=== PATIENT | male | born 1935 | race Caucasian/White ===

== ENCOUNTER → 2016-12-15 | Outpatient (CLI) | payer OTHER ==
[2015-06-22 11:10] VITALS: BP 151/76
[2016-12-15 09:09] LABS: BILIRUBIN,URINE NEGATIVE (NEGATIVE); BLOOD/HEMOGLOBIN,URINE NEGATIVE (NEGATIVE); GLUCOSE, URINE NEGATIVE (NEGATIVE); KETONES,URINE NEGATIVE (NEGATIVE); LEUKOCYTE ESTERASE ,URINE 1+ (NEGATIVE); NITRITES,URINE NEGATIVE (NEGATIVE); PROTEIN,URINE 2+ (NEGATIVE); UROBILINOGEN,URINE NORMAL (NORMAL)
--- NOTE | 2016-12-15 09:12 | RAD ---
HISTORY: Acute bronchitis Study: Chest two-view Comparison: July 07, 2015 Findings: The patient is status post median sternotomy and CABG. The heart is within normal limits in size. Th e lillian are normal. The aorta is calcified and ectatic. The lungs are well inflated and free of acute infiltrates. No pleural effusions are identified. The bony thorax is unremarkable. IMPRESSION: Lungs clear Reported By:
[2016-12-15 09:22] LABS: APPEARANCE,URINE CLEAR (CLEAR); COLOR,URINE YELLOW (YELLOW)
[2016-12-15 09:23] LABS: BACTERIA,URINE NEGATIVE /HPF (NEGATIVE); RBC,URINE 0 /HPF (NEGATIVE); SQUAMOUS EPITHELIAL CELL,UR NEGATIVE /HPF (NEGATIVE)
[2016-12-15 09:26] LABS: BASOPHILS # (AUTO) 0.1 X10^3/uL (0.0-0.1); EOSINOPHILS # (AUTO) 0.8 x10^3/uL (0.0-0.2); EOSINOPHILS % (AUTO) 8.7 % (0.9-2.9); HEMATOCRIT 36.2 % (42.0-54.0); HEMOGLOBIN 12.5 g/dL (13.5-18.0); LYMPHOCYTES # (AUTO) 1.2 X10^3/uL (1.3-2.9); MEAN CORPUSCULAR HEMOGLOBIN 29.2 pg (27.0-34.0); MEAN CORPUSCULAR HGB CONC 34.5 g/dL (33.0-35.0); MEAN CORPUSCULAR VOLUME 84.7 fL (80.0-100.0); MEAN PLATELET VOLUME 8.9 fL (7.4-11.0); MONOCYTES # (AUTO) 0.4 x10^3/uL (0.3-0.8); MONOCYTES % (AUTO) 4.6 % (0.0-13.0); NEUTROPHILS # (AUTO) 6.2 x10^3/uL (2.2-4.8); NEUTROPHILS % (AUTO) 71.7 % (42.0-75.0); PLATELET COUNT 236 X10^3/uL (150.0-450.0); RED BLOOD COUNT 4.28 X10^6/uL (4.7-6.0); WHITE BLOOD COUNT 8.7 X10^3/uL (3.6-10.0)
[2016-12-15 09:30] LABS: ALBUMIN 3.3 g/dL (3.4-5.0); CARBON DIOXIDE 28.8 mmol/L (21-32); CHOL/HDL RATIO 3.7 (0.0-5.0); COR CA(FOR HYPOALB) 9.6 mg/dL (8.5-10.1); CREATININE 1.52 mg/dL (0.70-1.30); FREE T4 (FREE THYROXINE) 0.98 ng/dL (0.76-1.46); MAGNESIUM 1.9 mg/dL (1.7-2.9); TOTAL PROTEIN 7.5 g/dL (6.4-8.2); TSH (3RD GENERATION) 4.961 uIU/mL (0.358-3.74); URIC ACID 6.4 mg/dL (3.5-7.2)
[2016-12-15 09:57] LABS: TOTAL PSA 0.74 ng/mL (0.13-4.0)
[2016-12-15 10:17] LABS: ERYTHROCYTE SEDIMENTATION RATE 26 MM/HOUR (0-15)
== END ==
LOC: LAB 08:19
PROVIDERS: ATTEND Internal Medicine Pulmonary Disease
DX: J20.8 Acute bronchitis due to other specified organisms (principal); J44.1 Chronic obstructive pulmonary disease with (acute) exacerbation; J41.1 Mucopurulent chronic bronchitis; N40.1 Benign prostatic hyperplasia with lower urinary tract symptoms; Z79.899 Other long term (current) drug therapy; Z12.5 Encounter for screening for malignant neoplasm of prostate
CPT/HCPCS: 36415; 71020; 80053; 80061; 81001; 82615; 83735; 84153; 84439; 84443; 84550; 85025; 85652; 87070; 87205

== ENCOUNTER 2016-12-22 11:16 | Emergency (ER) | payer OTHER ==
[2016-12-22 11:26] VITALS: BP 123/60; BMI 23.7
[2016-12-22 11:49] LABS: BASOPHILS # (AUTO) 0.1 X10^3/uL (0.0-0.1); BASOPHILS % (AUTO) 1.2 % (0.2-1.0); EOSINOPHILS # (AUTO) 0.5 x10^3/uL (0.0-0.2); EOSINOPHILS % (AUTO) 6.3 % (0.9-2.9); HEMATOCRIT 37.3 % (42.0-54.0); HEMOGLOBIN 12.6 g/dL (13.5-18.0); LYMPHOCYTES % (AUTO) 11.6 % (21.0-51.0); MEAN CORPUSCULAR HEMOGLOBIN 29.1 pg (27.0-34.0); MEAN CORPUSCULAR HGB CONC 33.9 g/dL (33.0-35.0); MEAN CORPUSCULAR VOLUME 85.8 fL (80.0-100.0); MEAN PLATELET VOLUME 9.5 fL (7.4-11.0); MONOCYTES # (AUTO) 0.5 x10^3/uL (0.3-0.8); MONOCYTES % (AUTO) 6.3 % (0.0-13.0); NEUTROPHILS # (AUTO) 6.3 x10^3/uL (2.2-4.8); NEUTROPHILS % (AUTO) 74.6 % (42.0-75.0); PLATELET COUNT 173 X10^3/uL (150.0-450.0); RED BLOOD COUNT 4.34 X10^6/uL (4.7-6.0); WHITE BLOOD COUNT 8.5 X10^3/uL (3.6-10.0)
[2016-12-22 11:56] LABS: BILIRUBIN,URINE NEGATIVE (NEGATIVE); BLOOD/HEMOGLOBIN,URINE NEGATIVE (NEGATIVE); GLUCOSE, URINE NEGATIVE (NEGATIVE); KETONES,URINE NEGATIVE (NEGATIVE); LEUKOCYTE ESTERASE ,URINE NEGATIVE (NEGATIVE); NITRITES,URINE NEGATIVE (NEGATIVE); PROTEIN,URINE 2+ (NEGATIVE); UROBILINOGEN,URINE NORMAL (NORMAL)
--- NOTE | 2016-12-22 11:58 | DR.DIZZY ---
HPI - Time seen Time seen: 11:45 - PCP Primary Care Physician: THU COOLEY - Complaint Chief Complaint Doctor Comments: Dizziness after taking cough syrup with codeine this morning. Chief Complaint:: PT. WAS AT THE [facility] IN [place] AND EMS WAS CALLED TO A LOW BLOOD PRESSURE OF 80/50. PT. C/O DIZZINESS PRIOR TO ARRIVAL AND ALSO C/O PAIN WHEN COUGHING AND RIGHT HIP PAIN. PT. STATES HE HAS BEEN ON ANTIBIOTICS FOR BRONCHITIS. - Nurses Notes Reviewed Nurses Notes Review: Yes - Source History Provided: Patient, EMS - Mode of Arrival Mode of Arrival: EMS - Timing Onset of Chief Complaint: 12/22/16 Came on: Suddenly - Modifying factors Worsens: Nothing - Associated signs and symptoms Associated Signs and Symptoms: Faintness PMH - PMH Past Medical History: Yes Past Medical History: Arthritis, Coronary Artery Disease, Depression, Diabetes, Dyslipidemia, Hypertension Past Surgical History: Yes Surgical History: CABG/Valve Surgery, Other - Family History History of Family Medical Conditions: Yes Family Medical History: [place], Hypertension - Social History Does patient currently use any type of tobacco product: No Have you used tobacco products in the last 12 months: No Type of Tobacco Use: None Does any household member use tobacco: No Alcohol Use: None Do you use any recreational Drugs:: No Lives With: Alone Lives Where: Home - infectious screening In the last 2 months have you had wt loss of >10#?: NO Have you had fever, night sweats or hemotysis?: No Have you traveled outside the country in the last 6 months?: No Isolation: Standard ROS - Review of Systems Constitutional: No Symptoms Reported Respiratoy: No Symptoms Reported Cardiovascular: No Symptoms Reported Gastrointestinal/Abdominal: No Symptoms Reported Genitourinary: No Symptoms Reported Neurological: Dizziness Musculoskeletal: No Symptoms Reported Integumentary: No Symptoms Reported All Other Systems: Reviewed and Negative PE - Vital Signs Vitals: Temperature 97.9 F Pulse Rate 90 Respiratory Rate 17 Blood Pressure [Right Arm] 151/76 Blood Pressure [Left Arm] 131/63 Blood Pressure 123/60 O2 Sat by Pulse Oximetry 95 - General Limitations: No Limitations General Appearance: Alert, In No Apparent Distress - Head Head Exam: Normal Inspection - Eyes Eye exam: Normal Appearance - ENT ENT Exam: Normal Exam - Neck Neck Exam: Normal Inspection, Full ROM, Trachea Midline - Chest Chest Inspection: Normal Inspection - Respiratory Respiratory Exam: Normal Lung Sounds Bilat Respiratory Exam: Bilateral Clear to Auscultation - Cardiovascular Cardiovascular Exam: Regular Rate, Normal Rhythm, Normal Heart Sounds - Abdominal Exam Abdominal Exam: Normal Inspection, Normal Bowel Sounds, Soft - Extremeties Extremities Exam: Normal Inspection - Neurologic Neurological Exam: Alert, Oriented X3, CN II-XII Intact Patient Oriented To: Person, Place, Time - Psychiatric Psychiatric Exam: Normal Affect, Normal Mood - Skin Skin Exam: Warm, Dry, Intact ROR - Labs Reviewed Result Diagrams: 12/22/16 11:38 12/22/16 11:38 Laboratory: WBC 8.5 X10^3/uL (3.6-10.0) 12/22/16 11:38 RBC 4.34 X10^6/uL (4.7-6.0) L 12/22/16 11:38 Hgb 12.6 g/dL (13.5-18.0) L 12/22/16 11:38 Hct 37.3 % (42.0-54.0) L 12/22/16 11:38 MCV 85.8 fL (80.0-100.0) 12/22/16 11:38 MCH 29.1 pg (27.0-34.0) 12/22/16 11:38 MCHC 33.9 g/dL (33.0-35.0) 12/22/16 11:38 RDW 14.0 % (11.6-16.5) 12/22/16 11:38 Plt Count 173 X10^3/uL (150.0-450.0) 12/22/16 11:38 MPV 9.5 fL (7.4-11.0) 12/22/16 11:38 Neut % 74.6 % (42.0-75.0) 12/22/16 11:38 Lymph % 11.6 % (21.0-51.0) L 12/22/16 11:38 Scurry % 6.3 % (0.0-13.0) 12/22/16 11:38 Eos % 6.3 % (0.9-2.9) H 12/22/16 11:38 Baso % 1.2 % (0.2-1.0) H 12/22/16 11:38 Neut # 6.3 x10^3/uL (2.2-4.8) H 12/22/16 11:38 Lymph # 1.0 X10^3/uL (1.3-2.9) L 12/22/16 11:38 Scurry # 0.5 x10^3/uL (0.3-0.8) 12/22/16 11:38 Eos # 0.5 x10^3/uL (0.0-0.2) H 12/22/16 11:38 Baso # 0.1 X10^3/uL (0.0-0.1) 12/22/16 11:38 Absolute Nucleated RBC 0.0 /100WBC 12/22/16 11:38 - Diagnosis Discharge Problem: Medication side effects present, Dizziness - Discharge Plan Disposition: HOME, SELF-CARE Condition: Stable - Follow ups/Referrals Follow ups/Referrals: Susana Vail [Primary Care Provider] - 3 days - Instructions Instructions: Polypharmacy Problems, [id number], Hypotension, [id number]
--- NOTE | 2016-12-22 12:02 | RAD ---
HISTORY: COUGH. Study: PORTABLE CHEST. Comparison: CHEST X-RAY DATED DECEMBER 15, 2016. Findings: The trachea is midline. Postsurgical changes status post CABG. The cardiac silhouette is unchanged. The lungs are clear without focal infiltrate or effusion. The bony thorax unchanged. IMPRESSION: 1. No acute cardiopulmonary disease. Reported By:
[2016-12-22 12:09] LABS: ALBUMIN 3.1 g/dL (3.4-5.0); CALCIUM 8.3 mg/dL (8.5-10.1); CARBON DIOXIDE 31.7 mmol/L (21-32); CREATININE 1.82 mg/dL (0.70-1.30)
[2016-12-22 12:12] LABS: APPEARANCE,URINE CLEAR (CLEAR); BACTERIA,URINE TRACE /HPF (NEGATIVE); COLOR,URINE YELLOW (YELLOW); MUCUS,URINE FEW /HPF (NEGATIVE); RBC,URINE RARE /HPF (NEGATIVE); SQUAMOUS EPITHELIAL CELL,UR FEW /HPF (NEGATIVE)
== END 2016-12-22 12:35 | disposition home or self-care (01) ==
LOC: ER 11:16
DX: R42 Dizziness and giddiness (principal); T88.7XXA Unspecified adverse effect of drug or medicament, initial encounter
CPT/HCPCS: 36415; 71010; 80053; 81001; 85025; 93005; 93010; 99282

== ENCOUNTER → 2017-04-04 | Outpatient (CLI) | payer OTHER | LOC: LAB 08:16 | PROVIDERS: ATTEND Nurse Practitioner Family | DX: R19.7 Diarrhea, unspecified (principal) | CPT/HCPCS: 87045; 87338; 87427; 87899 ==

== ENCOUNTER → 2017-06-02 | Outpatient (CLI) | payer OTHER ==
[2017-06-02 13:47] LABS: BLOOD UREA NITROGEN 20 mg/dL (7-18); C-REACTIVE PROTEIN < 0.50 mg/L (0-3.0); CALCIUM 9.3 mg/dL (8.5-10.1); CHLORIDE 102 mmol/L (98-107); COR NA(FOR HYPERGLY) 141 mmol/L (136-145); CREATININE 1.18 mg/dL (0.70-1.30); SODIUM 138 mmol/L (136-145); T4 (THYROXINE) 6.1 ug/dL (4.7-13.3); TSH (3RD GENERATION) 2.832 uIU/mL (0.358-3.74); eGFR BLACK RACES > 60 (>60); eGFR NON BLACK RACES > 60 (>60)
[2017-06-02 13:48] LABS: HEMOGLOBIN A1C 9.5 % (4.5-6.2)
== END ==
LOC: LAB 13:10
PROVIDERS: ATTEND Nurse Practitioner Family
DX: E03.8 Other specified hypothyroidism (principal); N40.0 Benign prostatic hyperplasia without lower urinary tract symptoms; E11.9 Type 2 diabetes mellitus without complications; J44.9 Chronic obstructive pulmonary disease, unspecified
CPT/HCPCS: 36415; 80048; 83036; 84436; 84439; 84443; 86140

== ENCOUNTER → 2017-06-22 | Outpatient (CLI) | payer OTHER ==
--- NOTE | 2017-06-22 15:14 | CT ---
CT HEAD WITHOUT CONTRAST CLINICAL HISTORY: 82 year old male status post fall with dizziness. COMPARISON: CT head 06/21/2015, MRI/MRA brain 07/10/2015. TECHNIQUE: Multiple, non-contrasted axial CT images were obtained from the skull base to the cranial vertex. Coronal and sagittal reformats were performed. FINDINGS: There are no abnormal intra- or extra-axial fluid collections, midline shift, or mass effec t. Meadows-white differentiation is normal. Global cortical involutional changes are present that are ad vanced for the patient's stated age. The ventricular system is enlarged but commensurate with the deg ree of sulcal prominence. Periventricular and supraventricular white matter hypodensity is present th at is nonspecific in appearance, but most likely to represent microvascular ischemic changes. Atheros clerotic vascular calcification is present within the carotid siphons and distal vertebral arteries. Small left occipital scalp contusion with stable right suboccipital soft tissue lipoma. Scattered mucosal thickening of the ethmoid labyrinth with the effervescent mucosal thickening of the maxillary sinuses. Remaining paranasal nasal sinuses, mastoid air cells and tympanic cavities are cl ear. Bilateral lens implants with right scleral band. IMPRESSION: 1. No definite evidence of an acute intracranial process. 2. Small left occipital scalp contusion. 3. Pattern of mucosal thickening as described, correlate for sinusitis. 4. Moderate microvascular white matter ischemic changes, with associated volume loss. Reported By:
== END | disposition home or self-care (01) ==
LOC: RAD 14:12
PROVIDERS: ATTEND Nurse Practitioner Family
DX: R42 Dizziness and giddiness (principal); W19.XXXA Unspecified fall, initial encounter; Y92.098 Other place in other non-institutional residence as the place of occurrence of the external cause
CPT/HCPCS: 70450

== ENCOUNTER → 2017-07-26 | Outpatient (CLI) | payer OTHER ==
--- NOTE | 2017-07-26 11:32 | RAD ---
HISTORY: Neck pain. No history of trauma. Study: AP and lateral cervical spine Comparison: None Findings: Moderate osteopenia is noted. Previous ACDF has been performed at C4/C5. Slight loss of normal cerv ical lordosis is noted. Otherwise there is normal alignment from C1 through C7. Mild disc space zuleika rowing is noted at C6/C7. [id number] anterior spurring is noted at C2/C3 and C3/C4. Preverteb ral soft tissues are normal. Pre odontoid space is normal. Posterior elements are intact. Ossifica tion/calcification is noted in the ligamentum nuchae delete. Moderate facet arthropathy and uncovert ebral joint arthropathy is noted at several levels, predominating at C6/C7. Lateral masses C1 are sy mmetric about the lateral masses C2 and the odontoid process. IMPRESSION: 1. Cervical spondylosis and postoperative changes noted. 2. Slight loss of normal cervical lordosis. This may be seen in normal individuals, be positional o r secondary to muscle spasm. 3. No acute bony abnormalities are identified. Reported By:
--- NOTE | 2017-07-26 11:35 | RAD ---
HISTORY: Back pain Study: AP and lateral thoracic spine with swimmer's Comparison: PA and lateral chest 12/15/2016 Findings: The swimmer's view demonstrates normal alignment at the cervical thoracic junction. Examination of t he thoracic spine reveals very minimal convex left thoracic scoliosis. Mild lateral spurring is pres ent multiple levels. Pedicles appear to intact. Patient is status post median sternotomy with coron bryce arterial bypass grafting. Visualized lungs are clear. The lateral view demonstrates normal alig nment. Minimal anterior spurring is present at a few levels, unchanged. IMPRESSION: 1. Thoracic spondylosis as described above. 2. No acute bony abnormalities are identified. Reported By:
== END | disposition home or self-care (01) | DRG 552 ==
LOC: RAD 08:39
PROVIDERS: ATTEND Psychiatry & Neurology Neurology
DX: M54.2 Cervicalgia (principal); M47.892 Other spondylosis, cervical region
CPT/HCPCS: 72040; 72072

== ENCOUNTER 2017-10-26 18:56 | Observation (INO) | payer OTHER ==
[2017-10-26 19:05] VITALS: BMI 22.8
[2017-10-26] MEDS ORDERED: SOLU-Medrol 125 MG VIAL IVP ONE (19:13)
[2017-10-26] MEDS ORDERED: LASIX IVP ONE (19:13)
[2017-10-26] MEDS ORDERED: DUONEB 0.5 MG/3 MG NEB ONE ×2 (19:15→19:47)
[2017-10-26] MEDS ORDERED: LASIX ONE (19:16)
[2017-10-26] MEDS ORDERED: SOLU-Medrol 125 MG VIAL ONE (19:16)
[2017-10-26 19:25] LABS: ABG ALLEN TEST pos; ABG BASE EXCESS 2.5 mmol/L (-2.0-2.0); ABG HCO3 26.3 mmol/L (22-26)
[2017-10-26 19:38] LABS: ALANINE AMINOTRANSFERASE 21 Units/L (12-78); ALBUMIN 3.4 g/dL (3.4-5.0); ALKALINE PHOSPHATASE 129 Units/L (46-116); ASPARTATE AMINO TRANSFERASE 24 Units/L (15-37); BLOOD UREA NITROGEN 22 mg/dL (7-18); CARBON DIOXIDE 27.3 mmol/L (21-32); CHLORIDE 108 mmol/L (98-107); COR NA(FOR HYPERGLY) 144 mmol/L (136-145); CREATININE 1.16 mg/dL (0.70-1.30); SODIUM 143 mmol/L (136-145); TOTAL PROTEIN 7.8 g/dL (6.4-8.2); eGFR BLACK RACES > 60 (>60); eGFR NON BLACK RACES > 60 (>60)
[2017-10-26 19:48] LABS: B-TYPE NATRIURETIC PEPTIDE 81.5 pg/mL (0-79)
[2017-10-26] MEDS ORDERED: DECADRON JET NEB (RESP USE) NEB ONE (19:48)
[2017-10-26 20:13] LABS: BASOPHILS # (AUTO) 0.1 X10^3/uL (0.0-0.1); EOSINOPHILS # (AUTO) 0.8 x10^3/uL (0.0-0.2); EOSINOPHILS % (AUTO) 11.6 % (0.9-2.9); HEMATOCRIT 36.6 % (42.0-54.0); HEMOGLOBIN 12.5 g/dL (13.5-18.0); LYMPHOCYTES # (AUTO) 1.8 X10^3/uL (1.3-2.9); MEAN CORPUSCULAR HEMOGLOBIN 29.1 pg (27.0-34.0); MEAN CORPUSCULAR HGB CONC 34.2 g/dL (33.0-35.0); MEAN CORPUSCULAR VOLUME 84.9 fL (80.0-100.0); MEAN PLATELET VOLUME 10.4 fL (7.4-11.0); MONOCYTES # (AUTO) 0.4 x10^3/uL (0.3-0.8); NEUTROPHILS # (AUTO) 3.7 x10^3/uL (2.2-4.8); NEUTROPHILS % (AUTO) 54.4 % (42.0-75.0); PLATELET COUNT 205 X10^3/uL (150.0-450.0); RED BLOOD COUNT 4.32 X10^6/uL (4.7-6.0); RED CELL DISTRIBUTION WIDTH 14.2 % (11.6-16.5); WHITE BLOOD COUNT 6.8 X10^3/uL (3.6-10.0)
--- NOTE | 2017-10-26 20:31 | RAD ---
Chest AP portable Indication: Asthma. Can't breathe. Findings: There is no pneumothorax or effusion. Lungs are hyperinflated. Sternotomy change noted. Hea rt size is normal. 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 Impression: Pulmonary hyperinflation which could represent COPD change or reactive airways disease, w ithout other acute abnormality identified Reported By:
--- NOTE | 2017-10-26 22:03 | DR.GENAD ---
HPI - PCP Primary Care Physician: JONAS BLANC - Complaint/Symptoms Chief Complaint Doctors Comments: Patient presents with daughter with complaint of shortness of breath. He has a history of COPD and uses his medication three times daily. There is no home oxygen Chief Complaint:: ASTHMA, CANT BREATHE Self Treatment fo Chief Complaint: DUO NEB. ALBUTEROL. COMBIVENT - Source History Provided: Family Member - Mode of Arrival Mode of Arrival: Ambulatory - Timing Onset of Chief Complaint: 10/26/17 PMH - PMH Past Medical History: Yes Past Medical History: Asthma, COPD, Diabetes, Hypertension, [place] Past Surgical History: Yes Surgical History: CABG/Valve Surgery, Other Past Surgical History Comment: OPEN HEART - Family History History of Family Medical Conditions: No (UNK) Family Medical History: [place], Hypertension - Social History Does patient currently use any type of tobacco product: No Have you used tobacco products in the last 12 months: No Type of Tobacco Use: None Does any household member use tobacco: No Alcohol Use: None Do you use any recreational Drugs:: No Lives With: Family Lives Where: Home - infectious screening In the last 2 months have you had wt loss of >10#?: NO Have you had fever, night sweats or hemotysis?: No Have you traveled outside the country in the last 6 months?: No Isolation: Standard ROS - Review of Systems Eyes: No Symptoms Reported ENTM: No Symptoms Reported Respiratoy: Non-Productive Cough Cardiovascular: No Symptoms Reported Gastrointestinal/Abdominal: No Symptoms Reported Genitourinary: No Symptoms Reported Neurological: No Symptoms Reported Musculoskeletal: No Symptoms Reported Integumentary: No Symptoms Reported Hematologic/Lymphatic: No Symptoms Reported Endocrine: No Symptoms Reported Psychiatric: No Symptoms Reported All Other Systems: Reviewed and Negative PE - Vital Signs Vitals: Pulse Rate [Left] 98 Pulse Rate 115 Respiratory Rate 18 Blood Pressure [Right Arm] 168/81 Blood Pressure [Left Arm] 131/63 Blood Pressure 123/60 O2 Sat by Pulse Oximetry 100 - General General Appearance: Alert, In Distress - Head Head Exam: Normal Inspection, Atraumatic - Eyes Eye exam: Normal Appearance, PERRL, EOMI - ENT ENT Exam: Normal Exam External Ear Exam: Normal External Inspection TM/Canal Exam: Bilateral Normal Nose Exam: Normal Nose Exam Mouth Exam: Normal Inspection Throat Exam: Normal Inspection - Neck Neck Exam: Normal Inspection, Full ROM - Chest Chest Inspection: Symmetric Chest Wall Rise - Respiratory Respiratory Exam: Bilateral Wheezing, Bilateral Decreased Breath Sounds - Cardiovascular Cardiovascular Exam: Regular Rate, Normal Rhythm - Abdominal Exam Abdominal Exam: Normal Inspection, Normal Bowel Sounds Abdominal Tenderness: negative: RUQ, RLQ, LUQ, LLQ, Epigastrium, Suprapubic, Diffuse, Mild, Moderate, Severe, Other - Extremities Extremities Exam: Normal Inspection - Back Back Exam: Normal Inspection, Full ROM - Neurologic Neurological Exam: Alert, Oriented X3, CN II-XII Intact - Psychiatric Psychiatric Exam: Normal Affect - Skin Skin Exam: Warm, Dry, Intact Course - Consultation Called: 21:30 (Dr Mckinney agreed to admit for further evaluation) ROR - Labs Reviewed Laboratory Results Reviewed?: Yes (D Dimer [id number]) Result Diagrams: 10/26/17 19:07 10/26/17 19:07 Laboratory: WBC 6.8 X10^3/uL (3.6-10.0) 10/26/17 19:07 RBC 4.32 X10^6/uL (4.7-6.0) L 10/26/17 19:07 Hgb 12.5 g/dL (13.5-18.0) L 10/26/17 19:07 Hct 36.6 % (42.0-54.0) L 10/26/17 19:07 MCV 84.9 fL (80.0-100.0) 10/26/17 19:07 MCH 29.1 pg (27.0-34.0) 10/26/17 19:07 MCHC 34.2 g/dL (33.0-35.0) 10/26/17 19:07 RDW 14.2 % (11.6-16.5) 10/26/17 19:07 Plt Count 205 X10^3/uL (150.0-450.0) 10/26/17 19:07 MPV 10.4 fL (7.4-11.0) 10/26/17 19:07 Neut % (Auto) 54.4 % (42.0-75.0) 10/26/17 19:07 Lymph % (Auto) 27.0 % (21.0-51.0) 10/26/17 19:07 Dawson % (Auto) 6.0 % (0.0-13.0) 10/26/17 19:07 Eos % (Auto) 11.6 % (0.9-2.9) H 10/26/17 19:07 Baso % (Auto) 1.0 % (0.2-1.0) 10/26/17 19:07 Neut # (Auto) 3.7 x10^3/uL (2.2-4.8) 10/26/17 19:07 Lymph # (Auto) 1.8 X10^3/uL (1.3-2.9) 10/26/17 19:07 Dawson # (Auto) 0.4 x10^3/uL (0.3-0.8) 10/26/17 19:07 Eos # (Auto) 0.8 x10^3/uL (0.0-0.2) H 10/26/17 19:07 Baso # (Auto) 0.1 X10^3/uL (0.0-0.1) 10/26/17 19:07 Absolute Nucleated RBC 0.1 /100WBC 10/26/17 19:07 D-Dimer 910 ng/mL (0-400) H* 10/26/17 19:07 Sample Site rr 10/26/17 19:13 ABG pH 7.460 (7.35-7.45) H 10/26/17 19:13 ABG pCO2 37.0 mmHg (35.0-45.0) 10/26/17 19:13 ABG pO2 58.0 mmHg (80.0-100.0) L 10/26/17 19:13 ABG HCO3 26.3 mmol/L (22-26) H 10/26/17 19:13 ABG O2 Saturation 91.0 % (90-100) 10/26/17 19:13 ABG Base Excess 2.5 mmol/L (-2.0-2.0) H 10/26/17 19:13 Toby Test pos 10/26/17 19:13 A-a Gradient 95.0 mmHg 10/26/17 19:13 FiO2 28.000 10/26/17 19:13 Blood Gas Comments steff well llj 10/26/17 19:13 Sodium 143 mmol/L (136-145) 10/26/17 19:07 Corrected Sodium 144 mmol/L (136-145) 10/26/17 19:07 Potassium 3.7 mmol/L (3.5-5.1) 10/26/17 19:07 Chloride 108 mmol/L (98-107) H 10/26/17 19:07 Carbon Dioxide 27.3 mmol/L (21-32) 10/26/17 19:07 BUN 22 mg/dL (7-18) H 10/26/17 19:07 Creatinine 1.16 mg/dL (0.70-1.30) 10/26/17 19:07 Est GFR (MDRD) Af Amer > 60 (>60) 10/26/17 19:07 Est GFR (MDRD) Non-Af > 60 (>60) 10/26/17 19:07 Glucose 149 mg/dL (65-99) H 10/26/17 19:07 Calcium 8.0 mg/dL (8.5-10.1) L 10/26/17 19:07 Corrected Calcium TNP 10/26/17 19:07 Total Bilirubin 0.40 mg/dL (0.2-1.0) 10/26/17 19:07 AST 24 Units/L (15-37) 10/26/17 19:07 ALT 21 Units/L (12-78) 10/26/17 19:07 Alkaline Phosphatase 129 Units/L (46-116) H 10/26/17 19:07 B-Natriuretic Peptide 81.5 pg/mL (0-79) H 10/26/17 19:07 Total Protein 7.8 g/dL (6.4-8.2) 10/26/17 19:07 Albumin 3.4 g/dL (3.4-5.0) 10/26/17 19:07 Globulin 4.4 g/dL (2.5-4.5) 10/26/17 19:07 Albumin/Globulin Ratio 0.8 Ratio (1.1-2.1) L 10/26/17 19:07 - XRAY XRAY Interpreted by: Radiologist (Chest: There is no pneumothorax or effusion. Lungs are hyperinflated. Sternotomy change noted. Heart size is normal. 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 Impression : Pulmonary hyperinflation which could represent COPD change or reactive airways disease. without other acute abnormality identified.) - Diagnosis Discharge Problem: COPD with exacerbation, R/O Pulmonary Emboli - Discharge Plan Condition: Stable - Follow ups/Referrals Follow ups/Referrals: SHAYLA BLANC [Primary Care Provider] - 3 days - Instructions
[2017-10-26 23:19] LABS: BASOPHILS % (AUTO) 0.4 % (0.2-1.0); EOSINOPHILS # (AUTO) 0.1 x10^3/uL (0.0-0.2); EOSINOPHILS % (AUTO) 0.7 % (0.9-2.9); HEMATOCRIT 37.2 % (42.0-54.0); HEMOGLOBIN 12.7 g/dL (13.5-18.0); LYMPHOCYTES # (AUTO) 0.5 X10^3/uL (1.3-2.9); LYMPHOCYTES % (AUTO) 4.8 % (21.0-51.0); MEAN CORPUSCULAR HEMOGLOBIN 29.1 pg (27.0-34.0); MEAN CORPUSCULAR HGB CONC 34.1 g/dL (33.0-35.0); MEAN CORPUSCULAR VOLUME 85.3 fL (80.0-100.0); MEAN PLATELET VOLUME 10.3 fL (7.4-11.0); MONOCYTES # (AUTO) 0.1 x10^3/uL (0.3-0.8); NEUTROPHILS # (AUTO) 9.7 x10^3/uL (2.2-4.8); NEUTROPHILS % (AUTO) 93.1 % (42.0-75.0); PLATELET COUNT 198 X10^3/uL (150.0-450.0); RED BLOOD COUNT 4.36 X10^6/uL (4.7-6.0); RED CELL DISTRIBUTION WIDTH 14.3 % (11.6-16.5); WHITE BLOOD COUNT 10.4 X10^3/uL (3.6-10.0)
[2017-10-26 23:22] LABS: BLOOD UREA NITROGEN 23 mg/dL (7-18); CALCIUM 8.3 mg/dL (8.5-10.1); CARBON DIOXIDE 28.7 mmol/L (21-32); CHLORIDE 106 mmol/L (98-107); COR NA(FOR HYPERGLY) 146 mmol/L (136-145); CREATININE 1.25 mg/dL (0.70-1.30); SODIUM 143 mmol/L (136-145); eGFR BLACK RACES > 60 (>60); eGFR NON BLACK RACES 59 (>60)
[2017-10-26 23:54] LABS: BAND NEUTROPHILS % 3 % (0-10); PLATELET MORPHOLOGY COMMENT NORMAL (NORMAL)
[2017-10-27] MEDS ORDERED: NS 250 ML IV 250 ML IV ONE (00:50)
[2017-10-27] MEDS: DUONEB 0.5 MG/3 MG NEB SCH ×6 (00:54→21:30)
[2017-10-27] MEDS: FORTAZ or TAZICEF INJ 1 GM in NS 100 ML IV + SPIKE MINIBAG* 100 ML IV SCH ×4 (01:01→22:22)
[2017-10-27] MEDS ORDERED: SOLU-Medrol 40 MG VIAL IVP SCH (09:00)
[2017-10-27] MEDS: SOLU-Medrol 40 MG VIAL IVP SCH ×2 (10:50→17:49)
[2017-10-27] MEDS: LOVENOX INJ 30 MG SYR SC SCH (10:58)
[2017-10-27 11:18] LABS: CKMB % 1.4 % (<4); CREATINE KINASE 154 Units/L (39-308); CREATINE KINASE MB 2.2 ng/mL (0-4.0); TROPONIN I < 0.02 ng/mL (0-1.5)
--- NOTE | 2017-10-27 11:35 | RAD ---
Examination: Chest, PA and lateral views History: SOB Comparison reference 10/26/2017 Findings: Continued normal heart size with evidence of prior CABG. The lungs and pleural spaces are c lear. There is widening of the right acromioclavicular joint which may be related to prior surgery/tr auma. Impression: No acute chest findings. Reported By:
[2017-10-27] MEDS: HumuLIN R SC PRN ×3 (12:03→22:22)
[2017-10-27 14:43] LABS: CKMB % 1.7 % (<4); CREATINE KINASE 164 Units/L (39-308); CREATINE KINASE MB 2.8 ng/mL (0-4.0); TROPONIN I < 0.02 ng/mL (0-1.5)
[2017-10-27] MEDS ORDERED: K-LYTE EFFERVESCENT PO ONE (15:06)
[2017-10-27] MEDS ORDERED: K-LYTE EFFERVESCENT ONE (15:49)
[2017-10-27 19:58] LABS: CKMB % 1.7 % (<4); CREATINE KINASE 221 Units/L (39-308); CREATINE KINASE MB 3.8 ng/mL (0-4.0); TROPONIN I < 0.02 ng/mL (0-1.5)
[2017-10-27] MEDS ORDERED: RESTORIL CAP 15 MG PO PRN (22:25)
[2017-10-28] MEDS: DUONEB 0.5 MG/3 MG NEB SCH ×2 (00:59→05:20)
[2017-10-28] MEDS ORDERED: SOLU-Medrol 40 MG VIAL IVP SCH (06:00)
[2017-10-28] MEDS: FORTAZ or TAZICEF INJ 1 GM in NS 100 ML IV + SPIKE MINIBAG* 100 ML IV SCH (07:13)
[2017-10-28 07:37] LABS: BASOPHILS % (AUTO) 0 % (0.2-1.0); HEMATOCRIT 34.2 % (42.0-54.0); HEMOGLOBIN 11.6 g/dL (13.5-18.0); LYMPHOCYTES # (AUTO) 0.8 X10^3/uL (1.3-2.9); MEAN CORPUSCULAR HEMOGLOBIN 28.8 pg (27.0-34.0); MEAN CORPUSCULAR HGB CONC 33.8 g/dL (33.0-35.0); MEAN CORPUSCULAR VOLUME 85.1 fL (80.0-100.0); MONOCYTES # (AUTO) 0.4 x10^3/uL (0.3-0.8); MONOCYTES % (AUTO) 2.7 % (0.0-13.0); NEUTROPHILS # (AUTO) 14.9 x10^3/uL (2.2-4.8); NEUTROPHILS % (AUTO) 92.3 % (42.0-75.0); PLATELET COUNT 197 X10^3/uL (150.0-450.0); RED BLOOD COUNT 4.02 X10^6/uL (4.7-6.0); RED CELL DISTRIBUTION WIDTH 14.2 % (11.6-16.5); WHITE BLOOD COUNT 16.1 X10^3/uL (3.6-10.0)
[2017-10-28 07:38] LABS: ALANINE AMINOTRANSFERASE 19 Units/L (12-78); ALBUMIN 3.2 g/dL (3.4-5.0); ALKALINE PHOSPHATASE 111 Units/L (46-116); ASPARTATE AMINO TRANSFERASE 24 Units/L (15-37); BLOOD UREA NITROGEN 41 mg/dL (7-18); CALCIUM 8.1 mg/dL (8.5-10.1); CARBON DIOXIDE 27.3 mmol/L (21-32); CHLORIDE 104 mmol/L (98-107); COR CA(FOR HYPOALB) 8.7 mg/dL (8.5-10.1); COR NA(FOR HYPERGLY) 145 mmol/L (136-145); CREATININE 1.25 mg/dL (0.70-1.30); SODIUM 140 mmol/L (136-145); TOTAL PROTEIN 7.2 g/dL (6.4-8.2); eGFR BLACK RACES > 60 (>60); eGFR NON BLACK RACES 59 (>60)
[2017-10-28 07:51] LABS: BAND NEUTROPHILS % 6 % (0-10)
[2017-10-28 07:52] LABS: PLATELET MORPHOLOGY COMMENT NORMAL (NORMAL)
[2017-10-28] MEDS: HumuLIN R SC PRN (07:54)
[2017-10-28] MEDS: LOVENOX INJ 30 MG SYR SC SCH (08:55)
[2017-10-28 08:57] VITALS: BP 157/79
--- NOTE | 2017-10-30 00:33 | DR.H&P ---
H&P - History & Physical for Day of: H&P Date: 10/26/17 - Chief Complaint Chief Complaint: short of breath - Allergies Allergies/Adverse Reactions: Allergies Allergy/AdvReac Type Severity Reaction Status Date / Time aspirin Allergy Verified 10/26/17 19:08 Iodine and Iodide Containing Allergy Verified 10/26/17 20:19 Produc Sulfa (Sulfonamide Allergy Verified 10/26/17 19:08 Antibiotics) - History of Present Illness History of Present Illness: is a 82 year old patient of Susana Bhatia who presented to the emergency room with reports of shortness of breath. Patient reports he has COPD and has been using his inhaler three times a day with continued symptoms. On auscultation of lung pandey patient noted with wheezing and decreased breath sounds throughout. On arrival, vitals were 98.9, 93, 24, 98% RA, 190/95. Labs were obtained. Abnormal Labs include the following: RBC 4.32, Hgb 12.5, Hct 36.6, D-Dimer 910, Chloride 108, BUN 22, Glucose 149, Calcium 8.0, Alk Phos 129, BNP 81.5, A/G Ratio 0.8. ABG revealed: pH 7.460, pO2 58.0, HCO3 26.3, Base Excess 2.5. Blood Cultures x2 Pending. Chest X-Ray obtained and revealed: Pulmonary hyperinflation which could represent COPD change or reactive airway disease, without other acute abnormality identified. EKG revealed: Sinus Rhythm. Rate=94. Patient was given Lasix 20mg IV x1, Solu- Medrol 125mg IV x1, Duoneb 0.5/3mg neb x2, and Decadron neb x1 with only slight improvement in symptoms. Patient was admitted for further evaluation and treatment. We will follow up with AM labs and continue to monitor patient. - Past Medical History Past Medical History: Asthma, COPD, Diabetes, Hypertension, [place] Additional Medical History: URGENCY URINARY INCONTINENCE, HISTORY OF [place] - Past Surgical History Surgical History: CABG/Valve Surgery, Other - Family History Family Medical History: Heart Failure, Sudden Cardiac , Hypertension - Social History Does patient currently use any type of tobacco product: No Have you used tobacco products in the last 12 months: No Type of Tobacco Use: None How many years tobacco product used: 45 Does any household member use tobacco: No Alcohol Use: None Drug Use: None - Medications Home Medications: Amlodipine Besylate [NORVASC 5 MG *] 1 tab PO HS 10/27/17 [History Confirmed ] Insulin Glargine (Lantus) [LANTUS INSULIN 10 ML VIAL *] 20 units SQ HS 10/27/17 [History Confirmed 10/27/17] Montelukast Sodium [SINGULAIR TAB 10 MG *] 1 tab PO HS 10/27/17 [History Confirmed 10/27/17] - Physical Exam Vital Signs: Temperature 98.1 F Pulse Rate [Left] 84 Pulse Rate 81 Respiratory Rate 18 Blood Pressure [Right Arm] 157/79 Blood Pressure [Left Arm] 158/72 Blood Pressure 123/60 O2 Sat by Pulse Oximetry 95
== END 2017-10-28 09:20 | disposition home or self-care (01) ==
LOC: ER 19:10 → OBS 22:09
PROVIDERS: ADMIT Internal Medicine; ATTEND Internal Medicine
DX: J44.1 Chronic obstructive pulmonary disease with (acute) exacerbation (principal); Z87.09 Personal history of other diseases of the respiratory system; R94.31 Abnormal electrocardiogram [ECG] [EKG]; R06.02 Shortness of breath; R79.1 Abnormal coagulation profile; R39.15 Urgency of urination
CPT/HCPCS: 36415; 36600; 71045; 71046; 80048; 80053; 82550; 82553; 82803; 82947; 83880; 84132; 84484; 85025; 85378; 87040; 87070; 87086; 87205; 93005; 94640; 94760; 96365; 96374; 96375; 99284; A4216; A4222; G0378; J0713; J1650; J1815; J1940; J2920; J2930; J7620